=== PATIENT | female | born 1975 | race Caucasian/White ===

== ENCOUNTER 2022-03-11 20:59 | Emergency (ER) | payer OTHER ==
[~2022-03-11] VITALS: Ht 165.1 cm; Wt 52.2 kg
[~2022-03-11 20:59] MED LIST: ARMOUR THYROID30 MG PO; BUPROPION HCL150 M2 PO; NORCO 5-325 TA1 EACH PO; PROZAC10 MG PO; PROZAC20 MG PO
[2022-03-11] MEDS ORDERED: SUMATRIPTAN SUC50 MG PO (22:17)
== END 2022-03-12 00:46 | disposition home or self-care (01) ==
LOC: ED 20:59
DX: G43.909 Migraine, unspecified, not intractable, without status migrainosus (principal); M62.838 Other muscle spasm; Z79.899 Other long term (current) drug therapy
CPT/HCPCS: 96374; 96375; 99283-25; J0780; J1200; J1885; J7121

== ENCOUNTER 2022-04-17 08:59 | Day surgery (SDC) | payer OTHER ==
[~2022-04-17] VITALS: Ht 165.1 cm; Wt 50.9 kg
--- NOTE | ~2022-04-17 | OR ---
[facility] [address], [place] [address] Draft DATE OF OPERATION: 04/17/2022 SURGEON: Charissa Zapata MD PREOPERATIVE DIAGNOSES: 1. Chronic acalculous cholecystitis (symptomatic CCK HIDA test, ejection fraction 41% with reproduction of symptoms. 2. Known celiac disease. 3. Distant history of extensive endometriosis, requiring hysterectomy. POSTOPERATIVE DIAGNOSES: Chronic cholecystitis with cholesterolosis and stone debris of gallbladder; normal cholangiogram. PROCEDURES: 1. Laparoscopic cholecystectomy with intraoperative cholangiogram. 2. Surgeon-directed fluoroscopy. ANESTHESIA: General endotracheal, Colby Alvin, [employer] and local 20 mL of 0.25% Marcaine with epinephrine. INDICATION: This -[id number] white woman who is a patient of Dr. Maurice Gonzalez. She has a longstanding history of celiac disease as well as distant history of endometriosis, requiring hysterectomy, ovariectomy, and additional surgery for ablation. In recent times, she has developed pervasive abdominal pain, bloating, fullness, and other symptoms. She has undergone a CT scan, which showed no evidence of abnormality. Additionally, she underwent an ultrasound, which showed no evidence of gallstones, but did show the posterior wall to be pronounced and in my opinion, this typical of chronic cholecystitis. A CCK-HIDA test was performed, which showed an ejection fraction of 41%, but market reproduction of her symptoms of upper abdominal pain, bloating, and feeling sick. She has pain in the right subcostal and right posterior thoracic area, but also the left upper quadrant pain. She is admitted at this time to undergo a laparoscopy with laparoscopic cholecystectomy. She understands the risks of bleeding, infection, bile duct injury, need for open procedure and importantly failure to cure her symptoms. She understands and she wished to proceed. FINDINGS: She had no evidence of residual endometriosis, scarring, or scar tissue in any way. The PATIENT NAME: MELANIE PAULINO OPERATIVE REPORT DATE OF : 71 REPORT #: [id number] PHYSICIAN: CHARISSA ZAPATA MD PCP: MAURICE GONZALEZ PAC REPORT IS CONFIDENTIAL AND NOT TO BE RELEASED WITHOUT AUTHORIZATION [facility] [address], [place] [address] Draft liver was normal. The left upper quadrant appeared normal as did the stomach and the left lateral segment of the liver. The gallbladder itself was chronically inflamed. Once excised, the gallbladder mucosa showed pronounced cholesterolosis and residual stone debris. Cholangiogram was normal. DESCRIPTION OF PROCEDURE: The patient was brought to the operating room, given a general endotracheal anesthetic. Preoperative antibiotic Ancef was given. Sequential compression device stockings were used. The antinausea regimen included Decadron 4 mg preoperatively as well as the scopolamine patch. The patient was given a general endotracheal anesthetic without complication. The abdomen was prepared with chlorhexidine solution and draped sterilely. An infraumbilical incision was made and using an open Marques cannula technique, pneumoperitoneum was achieved at level 14 mmHg of carbon dioxide gas. Intra-abdominal inspection showed no sign of ascites or carcinomatosis. There was no evidence of residual endometriosis or scarring from that. Examination of the left upper quadrant additionally showed no sign of diaphragmatic abnormality, gastric problem, or left lateral segment of liver problem. Three additional trocars were placed in usual configuration in the subxiphoid, right midclavicular, and right anterior axillary line. The gallbladder was elevated cephalad and retracted laterally. Using blunt electrocautery dissection, the triangle of Calot was dissected free. Given her thin body habitus, visualization of the structures was quite good. A dominant cystic artery was doubly clipped and divided. The cystic duct was well defined from surrounding tissue and a clip applied across gallbladder cystic duct junction. A transverse choledochotomy was made in the cystic duct. Egress of clear bile was noted. Using an Vail type cholangiocatheter, intraoperative cholangiography was undertaken, showing free flow of contrast in the biliary tree with prompt emptying into the duodenum. There was no sign of biliary anomaly or filling defect or other problem. The catheter was removed. The cystic duct was triply clipped. The gallbladder was dissected free in a retrograde fashion using electrocautery. The gallbladder was placed in an endobag and extracted through the infraumbilical port site without problem. The gallbladder was opened on the back table by the circulating nurse confirming significant cholesterolosis, stone debris, and chronic inflammation. Irrigation was undertaken in the subhepatic space. There was no sign of bleeding. The trocars removed under direct visualization, showing no sign of bleeding. The infraumbilical fascial incision reapproximated with interrupted 0 Vicryl suture. 20 mL of 0.25% Marcaine with epinephrine was injected locally. The skin was then closed with interrupted 3-0 Vicryl. Steri-Strips were applied. It is anticipated the patient will be extubated in the operating room to be transferred to recovery room in good condition. PATIENT NAME: MELANIE PAULINO OPERATIVE REPORT DATE OF : 71 REPORT #: [id number] PHYSICIAN: CHARISSA ZAPATA MD PCP: MAURICE GONZALEZ PAC REPORT IS CONFIDENTIAL AND NOT TO BE RELEASED WITHOUT AUTHORIZATION [address] [place], [place] [address] Draft Sponge, needle, and counts were reported as correct x3. MD JOSEF Sosa/THONY /[id number] cc: Maurice Gonzalez PA-C Copies: MAURICE GONZALEZ ~ PATIENT NAME: MELANIE PAULINO OPERATIVE REPORT DATE OF : 71 REPORT #: [id number] PHYSICIAN: CHARISSA ZAPATA MD PCP: MAURICE GONZALEZ REPORT IS CONFIDENTIAL AND NOT TO BE RELEASED WITHOUT AUTHORIZATION
[~2022-04-17 08:59] MED LIST changes: +SUMATRIPTAN SUC50 MG PO
[2022-04-17] MEDS ORDERED: IBUPROFEN600 MG PO (12:55)
[2022-04-17] MEDS ORDERED: ACETAMINOPHEN500 MG PO (12:56)
[2022-04-17] MEDS ORDERED: OXYCODON-ACETA1 EAC2 PO (12:56)
--- NOTE | 2022-04-17 13:21 | NUR ---
04/17/22 1321 Sheets,Kaylin 1245 PT ARRIVED TO PACU ASLEEP AND INCREASED HEART RATE. DEPUTY OF COUNTER INTELLIGENCE AWARE. RESP EVEN AND UNLABORED. PT ON 6L VIA MASK. 1248 MEDICATION GIVEN PER EMAR FOR HEART RATE. PT WAKES AND REPORTS "FEELING WEIRD." PT REORIENTED TO PACU. 1256 HEART RATE DECREASED TO BASELINE AND PT REPORTS FEELING A LITLE BETTER. PT REPORTS PAIN 12/29. O2 MASK REMOVED. 1304 PAIN MEDICATION GIVEN PER EMAR. 1310 PT REPORTS NO CHANGE IN PAIN LEVEL AND MEDICATION GIVEN. O2 REMAINS HIGH 90S TO 100%. PT USING MONTH SWAB AND REPORTS "A LITTLE BIT" OF NAUSEA.
--- NOTE | 2022-04-17 14:55 | NUR ---
STEADY ON FEET WITH ONE PERSON STAND BY ASSIST FOR AMBULATION TO BR. RETURNED TO BED AND ENCOURAGED PO INTAKE IN PREPERATION FOR PAIN PILL. REPORT TO PRIMARY NURSE GIVEN.
--- NOTE | 2022-04-17 16:39 | NUR ---
1505: PATIENT TOLERATED JELLO. MEDICATED FOR PAIN WITH 1 TAB OF PERCOCET. AT BEDSIDE. CALL LIGHT WITHIN REACH. 1600: DISCHARGE INSTRUCTIONS GIVEN TO PATIENT AND . PATIENT ASSISTED OOB. GAIT STEADY. PATIENT GETTING DRESSED. IV DC'D WNL. TIP INTACT. DRESSING APPLIED. 1627: PATIENT DISCHARGED TO HOME VIA WHEELCHAIR WITH .
== END 2022-04-17 16:27 | disposition home or self-care (01) ==
LOC: DS 08:59
PROVIDERS: ATTEND Surgery
PROC: 0FT44ZZ Resection of Gallbladder, Percutaneous Endoscopic Approach (ICD-10-PCS; principal; 2022-04-17 11:35)
DX: K80.10 Calculus of gallbladder with chronic cholecystitis without obstruction (principal); K90.0 Celiac disease; E03.9 Hypothyroidism, unspecified; Z90.49 Acquired absence of other specified parts of digestive tract; Z90.711 Acquired absence of uterus with remaining cervical stump; Z88.8 Allergy status to other drugs, medicaments and biological substances
CPT/HCPCS: 00790; 74300; J0690; J1100; J1644; J1885; J2250; J2310; J2405; J2550; J2704; J3010; J7121; Q9967

== ENCOUNTER 2024-04-09 07:10 | Observation (INO) | payer OTHER ==
[~2024-04-09] VITALS: Ht 165.1 cm; Wt 48.6 kg
[2024-04-09] VITALS (7 sets, daily range): BP systolic 101–115; BP diastolic 62–72
[~2024-04-09 07:10] MED LIST changes: +ACETAMINOPHEN500 MG PO; +IBUPROFEN600 MG PO; +OXYCODON-ACETA1 EAC2 PO; +SULFAMETHOXAZO1 EAC1 PO; +ZOLPIDEM TARTRAT5 MG PO
[2024-04-09] MEDS ORDERED: LACTATED RINGER'S 1,000 ML IV ONE ×2 (07:45→12:30)
[2024-04-09] MEDS ORDERED: PROCHLORPERAZINE EDISYLATE 10 MG/2 ML VIAL IV PRN ×2 (07:45→12:30)
[2024-04-09] MEDS ORDERED: ACETAMINOPHEN 500 MG TAB PO PRN (07:45)
[2024-04-09] MEDS ORDERED: LACTATED RINGER'S 1,000 ML IV SCH (07:45)
[2024-04-09] MEDS ORDERED: ACETAMINOPHEN 1,000 MG/100 ML VIAL IV PRN (07:45)
[2024-04-09] MEDS ORDERED: KETOROLAC TROMETHAMINE 15 MG/ML VIAL IV PRN (07:45)
[2024-04-09 08:04] LABS: BASOPHILS 0.1 % (0-2); EOSINOPHILS 0.2 % (0-6); HEMATOCRIT 39.1 % (35.0-50.0); HEMOGLOBIN 13.6 g/dL (12.0-18.0); LYMPHOCYTES 5.8 % (24-44); MCH 32.2 (27-36); MCHC 34.8 g/dl (30-36); MCV 92.5 fl (81-99); MONOCYTES 4.8 % (0-12); NEUTROPHILS 89.1 % (39-80); PLATELET COUNT 218 K/uL (140-440); RBC 4.23 M/ul (4.3-5.7); RDW 12.7 (10.5-15.0)
[2024-04-09 08:18] LABS: ALBUMIN 3.2 g/dL (3.4-5.0); ALBUMIN/GLOBULIN RATIO 0.82 (1.1-2.4); ANION GAP 13.4 (7-21); BUN/CREATININE RATIO 14.44 (6.0-28.6); CALCIUM 8.7 mg/dL (8.5-10.1); CREATININE, SERUM 0.9 mg/dL (0.55-1.02); POTASSIUM 3.4 mmol/L (3.5-5.1); PROTEIN, TOTAL 7.1 g/dL (6.4-8.2)
[2024-04-09] MEDS ORDERED: FAMOTIDINE 20 MG/ 2 ML VIAL IV SCH ×2 (09:00→12:28)
[2024-04-09] MEDS ORDERED: FLUOXETINE HCL60 MG PO (10:50)
[2024-04-09] MEDS ORDERED: LACTOBACILLUS RHAMNOSUS GG 1 EACH CAP PO SCH (12:27)
[2024-04-09] MEDS ORDERED: KETOROLAC TROMETHAMINE 30 MG/ML VIAL IV PRN (12:30)
[2024-04-09] MEDS ORDERED: VANCOMYCIN HCL 125 MG CAP PO SCH (13:00)
[2024-04-09] MEDS ORDERED: ACETAMINOPHEN 500 MG TAB PO SCH (14:00)
[2024-04-10 02:22] VITALS: BP 121/69
[2024-04-10 04:34] VITALS: BP 122/73
[2024-04-10 05:24] LABS: BASOPHILS 0.3 % (0-2); EOSINOPHILS 1.5 % (0-6); HEMATOCRIT 31.1 % (35.0-50.0); HEMOGLOBIN 10.9 g/dL (12.0-18.0); LYMPHOCYTES 14.3 % (24-44); MCH 32.4 (27-36); MCHC 35.1 g/dl (30-36); MONOCYTES 7.7 % (0-12); NEUTROPHILS 76.2 % (39-80); PLATELET COUNT 170 K/uL (140-440); RBC 3.38 M/ul (4.3-5.7); RDW 12.6 (10.5-15.0)
[2024-04-10 05:40] LABS: ANION GAP 9.2 (7-21); BUN/CREATININE RATIO 9.45 (6.0-28.6); CALCIUM 8.2 mg/dL (8.5-10.1); CREATININE, SERUM 0.74 mg/dL (0.55-1.02); POTASSIUM 3.2 mmol/L (3.5-5.1)
[2024-04-10 08:08] LABS: BILIRUBIN, URINE NEGATIVE (negative); BLOOD/HGB, URINE TRACE-L (Negative); KETONE, URINE NEGATIVE (Negative); LEUK ESTERASE, URINE NEGATIVE (negative); NITRITE, URINE NEGATIVE (negative); PH, URINE 6.5 (5-7)
[2024-04-10 08:16] LABS: BACTERIA, URINE RARE /hpf (negative); CASTS, URINE NONE SEEN \\lpf; COLLECTION TYPE, URINE CLEAN CATCH; CRYSTALS, URINE NONE SEEN (0-1+); EPITHELIAL CELLS, URINE SQUAMOUS 1+ /lpf (0-1+)
[2024-04-10 08:17] LABS: REFLEX CULTURE, URINE No (No)
[2024-04-10] MEDS ORDERED: VANCOMYCIN HCL125 MG PO (08:54)
[2024-04-10] MEDS ORDERED: KLOR-CON 1010 MEQ PO (08:55)
[2024-04-10] MEDS ORDERED: POTASSIUM CHLORIDE 10 MEQ TABCR PO SCH (09:00)
[2024-04-10 09:04] VITALS: BP 108/68
--- NOTE | 2024-04-10 09:16 | HP ---
[facility] [address] [place], [place] [address] Signed ADMISSION DATE: 04/09/2024 REASON FOR ADMISSION: Dehydration, nausea, vomiting, abdominal pain, diarrhea, probable C difficile colitis. HISTORY OF PRESENT ILLNESS: This 48-year-old white woman is well known to me from the past having undergone laparoscopic cholecystectomy in 2021. She contacted me earlier in mid evening last night with complaints of headache and other abnormalities, not previously described. By this morning, she notes that she had spent all night long feeling abdominal pain, nausea with significant profound diarrhea beginning at approximately 4:00 p.m. yesterday. It is notable that the patient had a gum infection on the right upper aspect approximately two weeks ago for which she was prescribed clindamycin. She subsequently saw an oral surgeon who had some concerns that root of the tooth may have been problematic, but her gum symptoms resolved entirely. Her diarrhea, however, started yesterday and was rather explosive and profound. The patient has had poor oral intake over the past 48 hours and progressive diarrhea and concern was maintained for possible C difficile infection. Given her dehydration and other factors, she was directly admitted to the hospital for further evaluation and care. Since admission, she has had 1 L of lactated Ringer's solution bolused and has been continuous IV. She has also been treated with IV Compazine, bedrest and minimal liquids, which she has tolerated. She does feel better at this time. PAST MEDICAL HISTORY: Notable for underlying anxiety disorder for which she takes bupropion. She has had cholecystectomy as described and two children. SOCIAL HISTORY: She is . She works as a medical claims examiner. Her accompanies her now (Robin). PHYSICAL EXAMINATION: GENERAL: A thin white woman who looks to be comfortable at this time. VITAL SIGNS: Temperature is 98.4, pulse is 109, blood pressure 114/65. HEENT: Mucous membranes are extremely dry. Trachea is midline. CHEST: Clear. HEART: Regular without murmur. Electronically Signed By: CHARISSA ZAPATA MD 04/10/24 0916 PATIENT NAME: MELANIE PAULINO HISTORY AND PHYSICAL DATE OF : 71 REPORT #: [id number] PHYSICIAN: CHARISSA ZAPATA MD PCP: JUSTINA GONZALEZ PAC REPORT IS CONFIDENTIAL AND NOT TO BE RELEASED WITHOUT AUTHORIZATION [address] [address] Signed ABDOMEN: Flat, nondistended. Palpation reveals no focal tenderness at this time. She has no ascites. There is no peritonitis. EXTREMITIES: Show no clubbing, cyanosis, or edema. LABORATORY STUDIES: Showed a white count of 20,000, hematocrit 39.1, platelets 218,000. Chem profile notable for a potassium at 3.4, glucose 129. Liver enzymes essentially normal. Albumin 3.2, amylase 27. Urinalysis is pending. Serology shows C difficile toxin by PCR positive. A C difficile 027/NAP1-P1 negative. ASSESSMENT: As suspected, the patient has dehydration related to C difficile colitis, which at this time is improved with fluid administration. It is probable that the C difficile arose in relation to treatment with antibiotics (clindamycin) for oral inflamed maxillary alveolar infection, which has resolved. Rehydration is paramount at this point and initiation of C difficile therapy to include vancomycin 125 mg p.o. q.i.d. She is improved with her other symptoms at this time, but remains dehydrated. We will replete her potassium as well. We will plan for enteric precautions as we have already initiated; she may require pulsed dose therapy regarding antibiotic therapy. Additionally, her nausea and abdominal pain should resolve as the disease process comes under control. At present, she has no evidence of systemic toxicity, though she did report fevers at home and has no evidence of distended colon or other similar problem at this time. MD JOSEF Sosa/DEVINL /[id number] cc: Justina Gonzalez PA-C Electronically Signed By: CHARISSA ZAPATA MD 04/10/24 0916 PATIENT NAME: MELANIE PAULINO HISTORY AND PHYSICAL DATE OF : 71 REPORT #: [id number] PHYSICIAN: CHARISSA ZAPATA MD PCP: JUSTINA GONZALEZ REPORT IS CONFIDENTIAL AND NOT TO BE RELEASED WITHOUT AUTHORIZATION [address] [address] Signed Copies: JUSTINA GONZALEZ ~ Electronically Signed By: CHARISSA ZAPATA MD 04/10/24 0916 PATIENT NAME: MELANIE PAULINO HISTORY AND PHYSICAL DATE OF : 71 REPORT #: [id number] PHYSICIAN: CHARISSA ZAPATA MD PCP: JUSTINA GONZALEZ PAC REPORT IS CONFIDENTIAL AND NOT TO BE RELEASED WITHOUT AUTHORIZATION
[2024-04-10 10:32] VITALS: BP 108/68
== END 2024-04-10 11:40 | disposition home or self-care (01) ==
LOC: MS 07:10
PROVIDERS: ADMIT Surgery; ATTEND Surgery
DX: E86.0 Dehydration (principal); A04.72 Enterocolitis due to Clostridium difficile, not specified as recurrent; F41.9 Anxiety disorder, unspecified; Z79.899 Other long term (current) drug therapy; Z88.2 Allergy status to sulfonamides; Z88.8 Allergy status to other drugs, medicaments and biological substances; Z90.49 Acquired absence of other specified parts of digestive tract
CPT/HCPCS: 36415; 80048; 80053; 81001; 82150; 85025; A9270; J0131; J0780; J1885; J7121